=== PATIENT | female | born 1940 | race Caucasian/White ===

== ENCOUNTER → 2023-10-22 14:17 | Outpatient (BNVA) | payer MEDICARE, OTHER, SELFPAY | PROVIDERS: PCP Internal Medicine; Referring Provider Internal Medicine; Visit Provider Podiatrist | DX: I70.203 Unspecified atherosclerosis of native arteries of extremities, bilateral legs (principal); L97.529 Non-pressure chronic ulcer of other part of left foot with unspecified severity; B35.1 Tinea unguium; L60.3 Nail dystrophy; E11.621 Type 2 diabetes mellitus with foot ulcer; S91.105A Unspecified open wound of left lesser toe(s) without damage to nail, initial encounter; R49.1 Aphonia | CPT/HCPCS: 99204 ==

== ENCOUNTER → 2025-01-10 09:24 | Outpatient (BNVA) | payer MEDICARE, OTHER, SELFPAY | PROVIDERS: PCP Internal Medicine; Referring Provider Internal Medicine; Visit Provider Podiatrist | DX: I96 Gangrene, not elsewhere classified (principal); L03.116 Cellulitis of left lower limb; I70.203 Unspecified atherosclerosis of native arteries of extremities, bilateral legs; L97.522 Non-pressure chronic ulcer of other part of left foot with fat layer exposed; I70.222 Atherosclerosis of native arteries of extremities with rest pain, left leg; E11.9 Type 2 diabetes mellitus without complications; G30.9 Alzheimer's disease, unspecified; F02.80 Dementia in other diseases classified elsewhere, unspecified severity, without behavioral disturbance, psychotic disturbance, mood disturbance, and anxiety | CPT/HCPCS: 99214 ==

== ENCOUNTER → 2025-03-07 10:16 | Outpatient (BNVA) | payer MEDICARE, OTHER, SELFPAY | PROVIDERS: PCP Internal Medicine; Referring Provider Internal Medicine; Visit Provider Podiatrist | DX: I96 Gangrene, not elsewhere classified (principal); L03.116 Cellulitis of left lower limb; I70.203 Unspecified atherosclerosis of native arteries of extremities, bilateral legs; I70.222 Atherosclerosis of native arteries of extremities with rest pain, left leg; E11.8 Type 2 diabetes mellitus with unspecified complications; L97.529 Non-pressure chronic ulcer of other part of left foot with unspecified severity; G30.9 Alzheimer's disease, unspecified; F02.80 Dementia in other diseases classified elsewhere, unspecified severity, without behavioral disturbance, psychotic disturbance, mood disturbance, and anxiety; L89.620 Pressure ulcer of left heel, unstageable; L02.612 Cutaneous abscess of left foot | CPT/HCPCS: 99215 ==

== ENCOUNTER 2025-03-07 10:59 | Inpatient (IN) | payer MEDICARE, OTHER, SELFPAY ==
[2025-03-07 11:15] VITALS: BP 131/69; PULSE 80; RESP 18; TEMP 36.6; O2SAT 98
--- NOTE | 2025-03-07 11:45 | DI.RAD_ITS ---
Exam(s) XR FOOT LT COMPLETE XR HEEL LT OS CALCIS EXAM: XR FOOT LT COMPLETE and XR heel LT os calcis CLINICAL HISTORY: Left foot pain. TECHNIQUE: 2D digital imaging was performed of the left heel and foot. Five images were obtained. AP, oblique and lateral views were obtained. COMPARISON: CR XR HEEL LT OS CALCIS from 03/07/2025 FINDINGS: BONES: No acute fracture is present. No bony destructive lesion is seen. The bones are osteopenic. There is an enthesophyte at the posterior calcaneus. Is a small plantar calcaneal spur. JOINTS: No dislocation present. SOFT TISSUE: Normal. IMPRESSION: 1. There is no acute fracture or dislocation. 2. Calcaneal spurs. 3. Osteopenia. DATA REPOSITORY: RADIATION DOSE DELIVERED:
--- NOTE | 2025-03-07 11:47 | W.ED.GENAD ---
Discharge Plan Disposition Patient Disposition: Admit to [facility] Discharge Details Clinical Impression: Dry gangrene, Ischemic ulcer of left foot, Chronic ulcer of left foot Primary Care Provider: Rc Mason ED Provider: Henry Cruz [place] Meds and New Rx's Prescriptions: No Action mecobalamin (vitamin B12) 500 mcg tablet,chewable 500 mcg PO DAILY loperamide [Imodium A-D] 2 mg tablet 2 mg PO Q4H PRN Rx Instructions: administer after each loose stool until symptoms controlled; do not exceed 8 mg per 24 hrs aspirin [Adult Aspirin Regimen] 81 mg tablet,delayed release (DR/EC) 81 mg PO DAILY acetaminophen 325 mg capsule 325 mg PO ONCE PRN magnesium hydroxide [Milk of Magnesia] 400 mg/5 mL suspension 400 mg PO DAILY PRN bisacodyl [Dulcolax (bisacodyl)] 10 mg suppository 10 mg OR DAILY PRN lisinopril 5 mg tablet 5 mg PO DAILY nystatin 100,000 unit/gram powder 1 applic topical BID insulin glargine [Basaglar KwikPen U-100 Insulin] 100 unit/mL (3 mL) insulin pen 35 unit subcut QAM sennosides [Senokot] 8.6 mg tablet 8.6 mg PO DAILY melatonin 5 mg capsule 5 mg PO HS PRN cranberry fruit 450 mg tablet 450 mg PO DAILY Rx Instructions: administer with a meal ketoconazole 2 % cream 1 applic topical DAILY Qty: 120 6RF Rx Instructions: Apply to toenails once daily urea 40 % cream 1 applic topical DAILY Qty: 28.35 3RF HPI General Date/Time Provider Initiated Documentation: 03/07/25 11:47. HPI Narrative: MDM This is a demented normothermic and not tachycardic 84-year-old female with type 2 diabetes and concerning left foot findings consistent with ischemia for which podiatry advised MRI following broad-spectrum antibiotics which I ordered with cefepime and vancomycin. No pain out of proportion to suggest necrotizing soft tissue infection. I considered sepsis however patient had reassuring vital signs so I do not feel she required blood cultures nor assessment of her lactate. I do not feel that she requires an angiogram of her abdomen pelvis with runoffs as she has reportedly been evaluated by vascular in the past at [facility]. No signs of candidal infection to suggest benefit from antifungal treatment. No chest pain no nausea distress ACS so did not obtain ECG. Patient reportedly has a history of dementia. She did not fall nor hit her head. According to son she is at her baseline so no indication for CT head. 1:15 PM Markedly elevated CRP. Elevated ESR. CBC shows thrombocytosis. No anemia. No leukocytosis. 5 PM I had multiple conversations with the patient's sons. Unfortunately the patient was unable to sit still for MRI despite small anxiolytic dose of midazolam had 0.5 mg. I felt that the risks of additional sedating medications in this elderly demented patient outweighed the benefits. I asked patient's sons if she would want to be considered for possible left foot amputation at [facility]. They felt that patient would not want this invasive procedure and that it would not meaningfully contribute to her life. I advised that there is a risk of deferring this procedure as the patient certainly could develop sepsis given her already and elevated inflammatory markers and signs of redness at her heel ulcer. Sons understood this risk and preferred local hospitalization. Theiri preference was for local hospitalization. Was in touch with Dr. Fragoso who graciously agreed to accept the patient. Mariah Jamison placed admission orders. I did upload pictures in the patient's [facility] chart in the event that patient's family subsequently elects to proceed with transfer to tertiary care. HPI The patient presents for evaluation of gangrene on her left foot. She was seen by a living coach this morning. She has been experiencing gangrene on her left toes and heel for the past month. A month ago, she was referred to [facility], where it was determined that there was no blood flow in her legs. Consequently, no treatment was initiated due to concerns about her ability to heal. It is uncertain whether she has had a fever during this period. She has not experienced any nausea or vomiting. Currently residing in a detention, she has not expressed any complaints. She reports no current discomfort and does not feel hungry or thirsty. Exam General: Chronically ill-appearing in no acute distress speaking. Head: Normocephalic, atraumatic. Eye: Extraocular eye movements intact. No conjunctival injection. No scleral icterus. Ear, nose, mouth, throat: Grossly normal inspection. Normal voice, handling secretions normally. Neck: Trachea midline. Cardiovascular: Well-perfused distal extremities. Respiratory: Nonlabored respiration. Gastrointestinal: Nondistended abdomen. Musculoskeletal: There is a large left heel ulcer. Cap refill of the left toes approximately 3 seconds. Skin is cool to the left foot. There is gangrene at the tip of the left third third toe that extends laterally to the 4th and 5th toes. No crepitance. No malodor. Difficult to palpate pedal pulses. Dry gangrene to left lateral toes and heel. Skin: Normal for age and race, grossly normal temperature and turgor. No acute rash. Neurologic: Alert. Not oriented to person place or time. Cooperative Related Data Home Medications ?Medication ?Instructions ?Recorded ?Confirmed acetaminophen 325 mg capsule 325 mg PO ONCE PRN 10/19/23 03/07/25 aspirin 81 mg tablet,delayed 81 mg PO DAILY 10/19/23 03/07/25 release (Adult Aspirin Regimen) bisacodyl 10 mg rectal suppository 10 mg OR DAILY PRN 10/19/23 03/07/25 (Dulcolax (bisacodyl)) cranberry fruit 450 mg tablet 450 mg PO DAILY 10/19/23 03/07/25 insulin glargine 100 unit/mL (3 35 unit subcut QAM 10/19/23 03/07/25 mL) subcutaneous pen (Basaglar KwikPen U-100 Insulin) lisinopril 5 mg tablet 5 mg PO DAILY 10/19/23 03/07/25 loperamide 2 mg tablet (Imodium 2 mg PO Q4H PRN 10/19/23 03/07/25 A-D) magnesium hydroxide 400 mg/5 mL 400 mg PO DAILY PRN 10/19/23 03/07/25 oral suspension (Milk of Magnesia) mecobalamin (vitamin B12) 500 mcg 500 mcg PO DAILY 10/19/23 03/07/25 chewable tablet melatonin 5 mg capsule 5 mg PO HS PRN 10/19/23 03/07/25 nystatin 100,000 unit/gram topical 1 applic topical BID 10/19/23 03/07/25 powder sennosides 8.6 mg tablet (Senokot) 8.6 mg PO DAILY 10/19/23 03/07/25 ketoconazole 2 % topical cream 1 applic topical DAILY #120 grams 10/22/23 03/07/25 urea 40 % topical cream 1 applic topical DAILY #28.35 grams 10/22/23 03/07/25 Previous Rx's ?Medication ?Instructions ?Recorded ketoconazole 2 % topical cream 1 applic topical DAILY #120 grams 10/22/23 urea 40 % topical cream 1 applic topical DAILY #28.35 grams 10/22/23 Allergies Allergy/AdvReac Type Severity Reaction Status Date / Time niacin Allergy Unknown Unknown Verified 03/07/25 11:21 General Stated Complaint: Orthopedic AIREL: 3 Course Vital Signs Vital signs: Vital Signs Temperature 36.6 C 03/07/25 11:15 Pulse 80 03/07/25 11:15 Respiratory Rate 18 03/07/25 11:15 Blood Pressure 131/69 03/07/25 11:15 Pulse Oximetry 98 03/07/25 11:15 Temperature 36.6 C 03/07/25 11:15 Temperature Source Oral 03/07/25 11:15 Pulse 80 03/07/25 11:15 Respiratory Rate 18 03/07/25 11:15 Blood Pressure 131/69 03/07/25 11:15 Blood Pressure Position Sitting 03/07/25 11:15 Pulse Oximetry 98 03/07/25 11:15 Oxygen Delivery Method Room Air 03/07/25 11:15 Oxygen Flow Rate 0 03/07/25 11:15 PFSH All Active Problems (Updated 03/07/25 @ 17:05 by Henry Cruz MD) Dry gangrene (Acute) Abscess of left heel (Acute) Unstageable pressure ulcer of left heel (Acute) Critical limb ischemia of left lower extremity (Acute) Cellulitis of left foot (Acute) Gangrene of left foot (Acute) Nail dystrophy (Acute) Onychomycosis (Acute) Atherosclerosis of artery of both lower extremities (Acute) Ischemic ulcer of left foot (Acute) Chronic ulcer of left foot (Acute) Need for assistance with personal care (Acute) Difficulty walking (Acute) Hyperlipidemia (Acute) Glaucoma (Chronic) Essential hypertension (Acute) Cataract in diseases classified elsewhere (Acute) Calcific tendinitis of right shoulder (Acute) Full incontinence of feces (Acute) Cerebrovascular disease (Acute) Cellulitis of left toe (Acute) Abnormal posture (Acute) Ulcer of left foot (Acute) T2DM (type 2 diabetes mellitus) (Acute) Alzheimer disease (Chronic) Medical History Abnormal weight loss Social History Smoking/Tobacco Use Status: Never Smoking risk assessment performed?: Yes Alcohol Intake: never Substance use type: does not use
[2025-03-07] MEDS: CEFEPIME 2 GM in Normal Saline 100 ML IVPB ×2 (12:20→21:53)
[2025-03-07 12:37] LABS: Abs Immature Grans 0.03 10^3/uL (0.0-0.06); HCT 39.6 % (36.0-46.0); HGB 12.2 g/dL (11.2-15.7); Immature Grans % 0.3 %; MCH 27.1 pg (27.0-33.0); MCHC 30.8 % (32.0-36.0); MCV 88 fL (80-95); MPV 9.0 fL (8.0-11.0); Platelet Count 449 10^3/uL (130-400); RBC 4.50 10^6/uL (3.93-5.22); RDW 13.2 % (11.7-14.6); RDW-SD 42.8 fL; WBC 10.64 10^3/uL (4.4-10.8)
[2025-03-07 12:42] LABS: ESR 74 mm/hr (0-30)
[2025-03-07 12:48] LABS: C-Reactive Protein 6.22 mg/dL (<=0.50)
[2025-03-07 12:49] LABS: Anion Gap 6.3 mmol/L (3-11); BUN 20 mg/dL (9-23); CO2 28.7 mmol/L (20.0-31.0); Calcium 9.1 mg/dL (8.3-10.6); Chloride 105 mmol/L (98-107); Glucose 247 mg/dL (74-106); Potassium 4.8 mmol/L (3.5-5.1); Sodium 140 mmol/L (136-145)
--- NOTE | 2025-03-07 15:48 | NUR.NOTE ---
Nursing Note: unstagable wound to left heel 5.5x3 cm 100% black eschar with left 5th toe black with yellow slough between 4th and 5th digit
[2025-03-07] MEDS: VANCOMYCIN/WATER (PEG) 1.5 GM/300 ML BAG IVPB (16:55)
[2025-03-07] MEDS: Midazolam 2 MG/2 ML VIAL 0.5 MG IVP (18:11)
[2025-03-07 18:16] VITALS: BP 187/85; PULSE 97; O2SAT 98
--- NOTE | 2025-03-07 18:16 | W.PC.ACHO ---
Registration Status: REG ER Primary Language: Preferred Language: ED Information & Data Chief Complaint Orthopedic 03/07/25 16:27 Chief Complaint Orthopedic 03/07/25 11:51 Triage Note patient sent from podiatry 03/07/25 11:15 with gangrene to the left toe and the left ankle Medical / Surgical History (Last Reviewed 03/07/25 @ 10:28 by Veronica Navarro DPM) Abnormal weight loss Most Recent Vital Signs Temperature 36.6 C 03/07/25 11:15 Temperature Source Oral 03/07/25 11:15 Pulse 80 03/07/25 11:15 Respiratory Rate 18 03/07/25 11:15 Blood Pressure 131/69 03/07/25 11:15 Blood Pressure Position Sitting 03/07/25 11:15 Pulse Oximetry 98 03/07/25 11:15 Oxygen Delivery Method Room Air 03/07/25 11:15 Oxygen Flow Rate 0 03/07/25 11:15 Allergies niacin Allergy (Unknown, Verified 03/07/25 11:21) Unknown Precautions Isolation Standard precaution 03/07/25 16:27 IV IV Catheter Type [Right Saline Lock Antecubital] IV Catheter Gauge [Right 20 Antecubital] Diet Orders Category Date Time Status Diabetes Consistent CHO/Heart Healthy [DIET] Nutrition 03/07/25 Dinner Active Diagnostics 03/07/25 Range/Units 12:20 WBC 10.64 (4.4-10.8) 10^3/uL RBC 4.50 (3.93-5.22) 10^6/uL Hgb 12.2 (11.2-15.7) g/dL Hct 39.6 (36.0-46.0) % MCV 88 (80-95) fL MCH 27.1 (27.0-33.0) pg MCHC 30.8 L (32.0-36.0) % RDW 13.2 (11.7-14.6) % Plt Count 449 H (130-400) 10^3/uL MPV 9.0 (8.0-11.0) fL Immature Gran % 0.3 % Neutrophils % 68.2 % Lymphocytes % 16.1 % Monocytes % 11.4 % Eosinophils % 3.4 % Basophils % 0.6 % Nucleated RBC % 0.0 (0.0-0.3) % Absolute Neutrophils 7.27 H (1.2-6.7) 10^3/uL Absolute Lymphocytes 1.71 (1.2-3.4) 10^3/uL Absolute Monocytes 1.21 H (0.1-0.8) 10^3/uL Absolute Eosinophils 0.36 (0.0-0.7) 10^3/uL Absolute Basophils 0.06 (0.0-0.2) 10^3/uL ESR 74 H (0-30) mm/hr Sodium 140 (136-145) mmol/L Potassium 4.8 (3.5-5.1) mmol/L Chloride 105 (98-107) mmol/L Carbon Dioxide 28.7 (20.0-31.0) mmol/L Anion Gap 6.3 (3-11) mmol/L BUN 20 (9-23) mg/dL Creatinine 0.97 (0.55-1.02) mg/dL Est GFR (CKD-EPI 2020) 54.51 (mL/min/1.73m2) Glucose 247 H (74-106) mg/dL Calcium 9.1 (8.3-10.6) mg/dL C-Reactive Protein 6.22 H (<=0.50) mg/dL Intake and Output - 24 Hour Total 03/07/25 10:59 thru 03/07/25 12:21 Intake Total 10 Balance 10 Weight 68.039 kg Intake: IV 10 Falls Risk Assessment History of Falls Previous History 03/07/25 16:27 Fall Total Score 15 03/07/25 16:27 Level of Risk Standard/Low Risk 03/07/25 16:27 Problems (Last Reviewed 03/07/25 @ 10:28 by Veronica Navarro DPM) Dry gangrene (Acute) Ischemic ulcer of left foot (Acute) Chronic ulcer of left foot (Acute) Notes 03/07/25 15:48 Nursing Notes by Angela Vann Nursing Note: unstagable wound to left heel 5.5x3 cm 100% black eschar with left 5th toe black with yellow slough between 4th and 5th digit Initialized on 03/07/25 15:48 - END OF NOTE Attestation Statement: By documenting the first initial, last name, and credentials of the reporting nurse below, both parties acknowledge that all relevant information regarding the patient handoff has been communicated, and that all questions have been addressed to ensure continuity and safety of care. Additional Patient Information/Comments: Paged at [phone] and report called at [phone]. Report Received From: Angela Henriquez RN
[2025-03-07 18:55] VITALS: BP 113/68; PULSE 106; RESP 18; TEMP 36.8; O2SAT 94
--- NOTE | 2025-03-07 19:33 | W.PM.HP.N ---
Date of service: 03/07/25 Time of Service: 18:00 Assessment and Plan Assessment and plan (1) Dry gangrene: Status: Acute Assessment and plan: Podiatry today found dry gangrene (3rd?5th toes), unstageable heel ulcer, erythema, and purulence concerning for superimposed infection. Wound cultures obtained. Vascular evaluation previously concluded not a candidate for revascularization; proximal amputation would be next step if deterioration occurs. MRI attempted but not tolerated. Family declines transfer to tertiary center or surgical intervention at this time. Dressings per podiatry recommendations (2) Critical limb ischemia of left lower extremity: Status: Acute Assessment and plan: Toe pressure 39 mmHg from vascular note. No revascularization options; patient is non-ambulatory. Very high risk for progressive gangrene. Conservative management; pain control; goals of care ongoing Palliative care consult. (3) T2DM (type 2 diabetes mellitus): Status: Acute Assessment and plan: Continue Basaglar 35 units qAM. Sliding scale insulin. FS Glucose ACHS Daily BMP (4) Essential hypertension: Status: Acute Assessment and plan: Continue lisinopril 5 mg daily. (5) Alzheimer disease: Status: Chronic Assessment and plan: Baseline dementia. Avoid sedating medications unless necessary. Reorientation, sleep hygiene, delirium precautions. (6) DVT prophylaxis: Status: Acute Assessment and plan: Enoxaparin 40 mg daily (7) Discharge planning issues: Status: Acute Assessment and plan: Return to [facility] to see Palliative consult - goals of care Expect discharge in 3 days History of Present Illness Narrative: This is an 84-year-old female patient with advanced Alzheimer dementia, type 2 diabetes, severe PAD/critical limb ischemia, and hypertension, presenting from her nursing facility after podiatry evaluation earlier today showed worsening left foot gangrene, heel ulcer, and concern for deep infection. Podiatry Visit Today (Summary) Earlier today, the patient was seen by podiatry for chronic gangrene and a new worsening heel wound. Findings included: Dry gangrene of the left 3rd?5th toes with surrounding erythema extending toward the midshaft of the 4th?5th metatarsals. Unstageable left heel ulcer with erythema and purulent drainage; concerns for cellulitis and possible underlying abscess or osteomyelitis. Pedal pulses 0/4 bilaterally; delayed cap refill; cold skin; consistent with critical limb ischemia. Cultures (aerobic + anaerobic) taken from left heel. Recommended Betadine paint, Allevyn dressings, padding of bony prominences, and Prevalon boots. Podiatry reviewed the vascular surgery note from 01/10/25, which documented toe pressure 39 mmHg, and stated the patient is not a candidate for revascularization; if tissue loss progresses, proximal amputation would be the next step. They recommended: CBC, ESR, CRP Left foot and left heel X-rays MRI to assess for osteomyelitis or abscess IV antibiotics ER evaluation and hospital admission Transfer to [facility] vascular service if MRI shows OM requiring proximal amputation. ED Course In the ED, she was afebrile with stable vital signs. Broad-spectrum antibiotics (cefepime + vancomycin) were started. MRI was attempted but failed due to inability to lie still; only minimal midazolam (0.5 mg) was used, and additional sedation was avoided due to high risk. Sons were counseled on risks of progression to sepsis and possible future need for amputation. They declined transfer or invasive interventions and requested local hospitalization. Symptoms Patient is a poor historian due to dementia. She denies pain, nausea, vomiting, fevers, or chills. Nursing facility reports no acute complaints. She has chronic poor perfusion and longstanding foot changes. Review of Systems Narrative: General: No known fever or chills. Skin: Gangrene and heel ulcer. Respiratory: No dyspnea. Cardiac: No chest pain. GI: No nausea/vomiting. : Full fecal incontinence. Neuro: At baseline dementia; no new deficits. [facility] All Active Problems (Updated 03/07/25 @ 19:43 by Mariah Jamison NP) Discharge planning issues (Acute) DVT prophylaxis (Acute) Dry gangrene (Acute) Abscess of left heel (Acute) Unstageable pressure ulcer of left heel (Acute) Critical limb ischemia of left lower extremity (Acute) Cellulitis of left foot (Acute) Gangrene of left foot (Acute) Nail dystrophy (Acute) Onychomycosis (Acute) Atherosclerosis of artery of both lower extremities (Acute) Ischemic ulcer of left foot (Acute) Chronic ulcer of left foot (Acute) Need for assistance with personal care (Acute) Difficulty walking (Acute) Hyperlipidemia (Acute) Glaucoma (Chronic) Essential hypertension (Acute) Cataract in diseases classified elsewhere (Acute) Calcific tendinitis of right shoulder (Acute) Full incontinence of feces (Acute) Cerebrovascular disease (Acute) Cellulitis of left toe (Acute) Abnormal posture (Acute) Ulcer of left foot (Acute) T2DM (type 2 diabetes mellitus) (Acute) Alzheimer disease (Chronic) Medical History Abnormal weight loss Social History Smoking risk assessment performed?: No Alcohol Intake: never Substance use type: does not use Meds Allergies and Home Medications Allergies Allergy/AdvReac Type Severity Reaction Status Date / Time niacin Allergy Unknown Unknown Verified 03/07/25 11:21 Home Medications ?Medication ?Instructions ?Recorded ?Confirmed ?Type acetaminophen 325 mg capsule 325 mg PO ONCE PRN 10/19/23 03/07/25 History aspirin 81 mg tablet,delayed 81 mg PO DAILY 10/19/23 03/07/25 History release (Adult Aspirin Regimen) bisacodyl 10 mg rectal suppository 10 mg [place] DAILY PRN 10/19/23 03/07/25 History (Dulcolax (bisacodyl)) cranberry fruit 450 mg tablet 450 mg PO DAILY 10/19/23 03/07/25 History insulin glargine 100 unit/mL (3 35 unit subcut QAM 10/19/23 03/07/25 History mL) subcutaneous pen (Basaglar KwikPen U-100 Insulin) lisinopril 5 mg tablet 5 mg PO DAILY 10/19/23 03/07/25 History loperamide 2 mg tablet (Imodium 2 mg PO Q4H PRN 10/19/23 03/07/25 History A-D) magnesium hydroxide 400 mg/5 mL 400 mg PO DAILY PRN 10/19/23 03/07/25 History oral suspension (Milk of Magnesia) mecobalamin (vitamin B12) 500 mcg 500 mcg PO DAILY 10/19/23 03/07/25 History chewable tablet melatonin 5 mg capsule 5 mg PO HS PRN 10/19/23 03/07/25 History nystatin 100,000 unit/gram topical 1 applic topical BID 10/19/23 03/07/25 History powder sennosides 8.6 mg tablet (Senokot) 8.6 mg PO DAILY 10/19/23 03/07/25 History ketoconazole 2 % topical cream 1 applic topical DAILY #120 grams 10/22/23 03/07/25 Rx urea 40 % topical cream 1 applic topical DAILY #28.35 grams 10/22/23 03/07/25 Rx Exam Narrative Exam Narrative: HEENT: NCAT; EOMI; anicteric. Neck: Trachea midline. CV: Poor distal perfusion; extremities cool. Resp: Non-labored on room air. GI: Abdomen nondistended. Extremities: Left foot: Large unstageable heel ulcer with erythema. Dry gangrene of 3rd toe extending to 4th?5th toes. Purulence present; no crepitus. Cool to touch; cap refill ~3 seconds. Pedal pulses difficult/unpalpable. Right foot: No acute findings. Skin: No acute rash. Neuro: Alert but disoriented ?3; cooperative; baseline. Vitals: Stable (BP 131/69, HR 80, RR 18, Temp 36.6?C, SpO2 98% RA). Results Labs 03/07/25 12:20 03/07/25 12:20 Labs: Laboratory Results - last 24 hr 03/07/25 12:20 WBC 10.64 RBC 4.50 Hgb 12.2 Hct 39.6 MCV 88 MCH 27.1 MCHC 30.8 L RDW 13.2 Plt Count 449 H MPV 9.0 Immature Gran % 0.3 Neutrophils % 68.2 Lymphocytes % 16.1 Monocytes % 11.4 Eosinophils % 3.4 Basophils % 0.6 Nucleated RBC % 0.0 Absolute Neutrophils 7.27 H Absolute Lymphocytes 1.71 Absolute Monocytes 1.21 H Absolute Eosinophils 0.36 Absolute Basophils 0.06 ESR 74 H Sodium 140 Potassium 4.8 Chloride 105 Carbon Dioxide 28.7 Anion Gap 6.3 BUN 20 Creatinine 0.97 Est GFR (CKD-EPI 2020) 54.51 Glucose 247 H Calcium 9.1 C-Reactive Protein 6.22 H Last Vital Signs Temp 36.6 C 03/07/25 11:15 Pulse 97 H 03/07/25 18:16 Resp 18 03/07/25 11:15 BP 187/85 H 03/07/25 18:16 Pulse Ox 98 03/07/25 18:16 VTE Prohylaxis Risk Level: Moderate/High Risk Contraindications: None Prophylaxis: Pharmacologic Time Spent Time spent with Patient: 40-54 minutes Time was spent: preparing to see the patient(eg.review tests), obtaining and/or reviewing separately otained hiistory, ordering medications,tests, procedures, referring, communicating with other health post anesthesia care unit nurse, indepentently interpreting results, counseling the patient and care coordination
[2025-03-07] MEDS: Nystatin POWDER 15 GM JAR TP (21:52)
[2025-03-07] MEDS: Normal Saline 1,000 ML 75 ML IV (22:14)
[2025-03-08 00:14] VITALS: BP 157/57; PULSE 74; RESP 18; TEMP 36.8; O2SAT 99
[2025-03-08 05:57] VITALS: BP 134/82; PULSE 87; RESP 18; TEMP 36.4; O2SAT 97
[2025-03-08 07:29] VITALS: BP 143/80; PULSE 80; RESP 18; TEMP 36.3; O2SAT 98
[2025-03-08 07:32] LABS: Abs Immature Grans 0.05 10^3/uL (0.0-0.06); HCT 38.5 % (36.0-46.0); HGB 11.9 g/dL (11.2-15.7); Immature Grans % 0.4 %; MCH 26.9 pg (27.0-33.0); MCHC 30.9 % (32.0-36.0); MCV 87 fL (80-95); MPV 9.0 fL (8.0-11.0); Platelet Count 467 10^3/uL (130-400); RBC 4.43 10^6/uL (3.93-5.22); RDW 13.1 % (11.7-14.6); RDW-SD 41.1 fL; WBC 11.52 10^3/uL (4.4-10.8)
[2025-03-08 07:56] LABS: C-Reactive Protein 5.79 mg/dL (<=0.50); Magnesium 2.1 mg/dL (1.6-2.6)
[2025-03-08 07:57] LABS: Anion Gap 8 mmol/L (3-11); BUN 17 mg/dL (9-23); CO2 25.0 mmol/L (20.0-31.0); Calcium 8.6 mg/dL (8.3-10.6); Chloride 108 mmol/L (98-107); Glucose 90 mg/dL (74-106); Potassium 3.9 mmol/L (3.5-5.1); Sodium 141 mmol/L (136-145)
--- NOTE | 2025-03-08 08:40 | POCOE_ITS ---
Date of service: 03/08/25 Time of Service: 08:45 Assessment and Plan Assessment and plan (1) Gangrene of left foot: Status: Acute (2) Atherosclerosis of artery of both lower extremities: Status: Acute (3) Ischemic ulcer of left foot: Status: Acute (4) Chronic ulcer of left foot: Status: Acute (5) Unstageable pressure ulcer of left heel: Status: Acute (6) Abscess of left heel: Status: Acute (7) Dry gangrene: Status: Acute (8) T2DM (type 2 diabetes mellitus): Status: Acute (9) Alzheimer disease: Status: Chronic Assessment and plan: Patient with dry gangrene to the left fifth toe. There is an unstageable ulcer with concern for underlying abscess to the left heel. There is cellulitis to the left heel. Her pulses are non palpable. Vascular studies suggestive of severe PAD with CLI. She is not a revascularization candidate due to comorbidities and difficulty tolerating anesthesia as per Vascular service at [facility]. I called infectious disease and discussed this. They recommend 5 to 7 days of IV antibiotics. They do not recommend long-term antibiotics due to risk for developing resistance. She is not a candidate for wound debridement due to vascular status. With gangrene, cellulitis, ulcer and purulence to the left foot, there is very high risk for limb loss and sepsis at this time. I discussed this with the medicine team. They have consulted palliative care as well. For now, will continue with woundcare and IV antibiotics. Wound culture results are pending. I recommended and applied betadine to the wound and gangrenous toe with foam border dressings. Nursing to change dressings daily. I recommend prevalon boots. Patients is non ambulatory. Very high risk for developing pressure ulcers. History of Present Illness History of Present Illness Chief Complaint: Heel ulcer with cellulitis, left Narrative: Patient was seen bedside today. Resting comfortably. Consults Consult date: 03/07/25 Requesting physician: [facility] Active Problems Discharge planning issues (Acute) DVT prophylaxis (Acute) Dry gangrene (Acute) Abscess of left heel (Acute) Unstageable pressure ulcer of left heel (Acute) Critical limb ischemia of left lower extremity (Acute) Cellulitis of left foot (Acute) Gangrene of left foot (Acute) Nail dystrophy (Acute) Onychomycosis (Acute) Atherosclerosis of artery of both lower extremities (Acute) Ischemic ulcer of left foot (Acute) Chronic ulcer of left foot (Acute) Need for assistance with personal care (Acute) Difficulty walking (Acute) Hyperlipidemia (Acute) Glaucoma (Chronic) Essential hypertension (Acute) Cataract in diseases classified elsewhere (Acute) Calcific tendinitis of right shoulder (Acute) Full incontinence of feces (Acute) Cerebrovascular disease (Acute) Cellulitis of left toe (Acute) Abnormal posture (Acute) Ulcer of left foot (Acute) T2DM (type 2 diabetes mellitus) (Acute) Alzheimer disease (Chronic) Medical History Abnormal weight loss Social History Smoking risk assessment performed?: No Alcohol Intake: never Substance use type: does not use Exam Extrem Other: Vascular: Pedal pulses are 0/4 b/l LE. There is mild edema to b/l LE. Capillary fill time is delayed to distal digits bilaterally. Skin temperature is cold to cold bilateral lower extremity. No varicose veins or spider veins noted bilaterally. Hair growth is absent bilaterally. Gangrene to the tip of the left third toe with surrounding erythema extending to towards the mid metatarsal of the 4th and 5th metatarsals. No crepitus appreciated at this time however, exam is very limited as the patient withdraws the left lower extremity. No malodor. There does appear to be some purulence from the left lower extremity wound. MSK: Muscle testing deferred today due to patient status Derm: gangrene noted to the left fifth toe with surrounding erythema, edema, crepitus is difficult to be appreciated due to patient withdrawing her left leg. Erythema extending medially towards the midshaft of the 4th and 5th metatarsals at this time. Unstageable ulcer noted to the entirety of the left heel posteriorly as well as laterally, there is skin desquamation noted yuly ulcer. There is erythema extending from this wound medially to dorsally. No proximal streaking however no lymphangitis however. No appreciable crepitus, there is some purulence noted medially. Results Last Vital Signs Temp 97.3 F L 03/08/25 07:29 Pulse 80 03/08/25 07:29 Resp 18 03/08/25 07:29 BP 143/80 H 03/08/25 07:29 Pulse Ox 98 03/08/25 07:29 Labs 03/08/25 06:50 03/08/25 06:50 Labs: Laboratory Results - last 24 hr 03/07/25 03/08/25 12:20 06:50 WBC 10.64 11.52 H RBC 4.50 4.43 Hgb 12.2 11.9 Hct 39.6 38.5 MCV 88 87 MCH 27.1 26.9 L MCHC 30.8 L 30.9 L RDW 13.2 13.1 Plt Count 449 H 467 H MPV 9.0 9.0 Immature Gran % 0.3 0.4 Neutrophils % 68.2 73.0 Lymphocytes % 16.1 12.4 Monocytes % 11.4 10.2 Eosinophils % 3.4 3.5 Basophils % 0.6 0.5 Nucleated RBC % 0.0 0.0 Absolute Neutrophils 7.27 H 8.41 H Absolute Lymphocytes 1.71 1.43 Absolute Monocytes 1.21 H 1.18 H Absolute Eosinophils 0.36 0.40 Absolute Basophils 0.06 0.06 ESR 74 H Sodium 140 141 Potassium 4.8 3.9 Chloride 105 108 H Carbon Dioxide 28.7 25.0 Anion Gap 6.3 8 BUN 20 17 Creatinine 0.97 0.92 Est GFR (CKD-EPI 2020) 54.51 57.95 Glucose 247 H 90 Calcium 9.1 8.6 Magnesium 2.1 C-Reactive Protein 6.22 H 5.79 H
[2025-03-08 09:26] LABS: Vancomycin, Random 11.6 ug/mL
--- NOTE | 2025-03-08 10:15 | INITIAL_ITS ---
Care Management Initial Assmt Initial Assessment Reason for Hospitalization: gangrene of left foot Functional Status/Living Situation Patient Presentation: Elisha was seen in the outpatient podiatry office yesterday. She was noted to have a new wound on her left heel, and this was believed due to progression of gangrene. Cultures were taken and sent, and Elisha was sent to the ED for further evaluation. Per podiatry, Elisha is not a revascularization candidate due to comorbidities and difficulty tolerating anesthesia. She is not a candidate for wound debridement due to vascular status. With gangrene, cellulitis, ulcer and purulence to the left foot, there is very high risk for limb loss and sepsis at this time. IV abx course recommended, but it is believed this would actually do very little, and she is not a candidate for [facility] antibiotics. Elisha was unable to tolerate MRI, so that imaging not done. Family is declining transfer to [facility] or surgical intervention. Elisha has Alzheimers and is bed bound. She lives at the [facility] in [place]. Palliative had a lengthy conversation with Elisha's son, Tobi, today. Elisha was made RUBBER GRINDER and will transfer back to the [facility] tomorrow on hospice. Elisha was sleeping very soundly each time that went to check on her today. She appeared comfortable, looked peaceful. Tobi had reported that Elisha loves the music of [place], and was able to secure a hospital ipad and put on the [employer] station for her. Town of Residence: [place] at [facility] Resides with: Other (resides at [facility]) Significant Other/Family: Local (Tobi,son) Caregiver/Guardian: Sly Puckettdash Britton is legal guardian Natural Supports: Tiny Guthrie Instrumental Activities of Daily Living (ADLs): Requires support Medications Medication Management: No Issues/Barriers identified Physical Functioning/Mobility Assistive Device: wheel chair. Elisha is non-ambulatory Advance Directives Advance Directives: Do you have an Advance Directive: AD On File at [facility]: N 10/26/23, 12:50 Date Asked 03/07/25 03/07/25, 11:42 AD Date Reviewed COLST On File at [facility] COLST Date Scanned Code Status Resuscitation Status DNR/DNI Insurance Coverage/Financial Issues Insurance: Medicare Part A & B 4 Life MCR Supplement Care Team Visit Care Team Role Provider Type Mariah Jamison NP MD [facility] STAFF PHYSICIAN Rc Mason Primary Care Provider NON-[facility] STAFF PHYSICIAN Karena Yusuf, ADINA, CDCES Other Providers MARBLE CLEANER Veronica Navarro, DPM [facility] Kevin Andrade, ERICM Other [facility]iders [facility] Jose Cormier, ADINA Other Providers MARBLE CLEANER Henry Cruz MD Emergency Provider [facility] STAFF PHYSICIAN Henry Fragoso Admit Provider [facility] STAFF PHYSICIAN Attending Provider Discharge Potential Discharge Needs: PCP F/U Appt and Other (hospice care) Anticipated Barriers to Discharge: None Identified Patient/Family Education Needs: Review discharge instructions, discuss Ask Me Three Transportation: EMS Plan: Elisha will transfer home to [facility] tomorrow and be admitted to hospice. She will f/u with the hospice provider and continue per her plan of care. Elisha will transport via EMS as coordinated by CM. Social Determinants of Health Screening Will the Patient Participate in the Screening?: Unable to obtain Comments: unable to answer question PFSH All Active Problems (Updated 03/08/25 @ 12:26 by Cherelle Rajput NP) ACP (advance care planning) (Acute) Comfort measures only status (Acute) Palliative care encounter (Acute) Discharge planning issues (Acute) DVT prophylaxis (Acute) Dry gangrene (Acute) Abscess of left heel (Acute) Unstageable pressure ulcer of left heel (Acute) Critical limb ischemia of left lower extremity (Acute) Cellulitis of left foot (Acute) Gangrene of left foot (Acute) Nail dystrophy (Acute) Onychomycosis (Acute) Atherosclerosis of artery of both lower extremities (Acute) Ischemic ulcer of left foot (Acute) Chronic ulcer of left foot (Acute) Need for assistance with personal care (Acute) Difficulty walking (Acute) Hyperlipidemia (Acute) Glaucoma (Chronic) Essential hypertension (Acute) Cataract in diseases classified elsewhere (Acute) Calcific tendinitis of right shoulder (Acute) Full incontinence of feces (Acute) Cerebrovascular disease (Acute) Cellulitis of left toe (Acute) Abnormal posture (Acute) Ulcer of left foot (Acute) T2DM (type 2 diabetes mellitus) (Acute) Alzheimer disease (Chronic) Medical History Abnormal weight loss Social History Smoking/Tobacco Use Status: Never Smoking risk assessment performed?: Yes Alcohol Intake: never Substance use type: does not use
[2025-03-08 11:14] VITALS: BP 124/97; PULSE 91; RESP 18; TEMP 35.8; O2SAT 96
[2025-03-08] MEDS: Enoxaparin 40 MG/0.4 ML SYR SC (11:20)
[2025-03-08] MEDS: Nystatin POWDER 15 GM JAR TP ×2 (11:24→20:42)
--- NOTE | 2025-03-08 12:08 | W.PALLCONSUL ---
Date of service: 03/08/25 Time of Service: 11:00 History of Present Illness Narrative: Ms. Tello is an 84 y/o F currently hospitalized 2/2 LLE gangrenous foot; PMHx sig for AD and DM - present via telephone son/guardian Tobi Hospital Course: presented to ED after podiatry outpatient visit recommend present to ED w/concerns for LLE gangrenous; present over toes and heels x1mo; podiatry evaluation recommend MRI, unfortunately patient was not able to tolerate MRI; broad spectrum abx started; family preference in ED for no amputation or transfer per the patient's preference. ID consult indicate that we could do IV antibiotics however not candidate for [facility] abx, given for 5-7 days would not do much per hospitalist - per staff: pain w/repositioning, recovers quickly after; not making meaningful conversation, not awake enough to eat initially this morning but did wake later and eat appropriately around 50% of breakfast w/full feed assist; bed bound, incontinent of urine and bowels per Tobi - he has been guardian for 8+ years, since dementia diagnosis, he was caregiver for her for 5 years prior to placement at [facility], she has been there for a bit now - he spoke to his brother Dejuan, and their biggest concern is managing her pain - he feels her focus on comfort, not life prolonging measures, if she could see herself now she would not want to have any invasive measures, including an amputation, even if it meant she would sooner - if she could choose where she was for EOL, she would likely choose [facility] at this time, Tobi does not feel he has the ability to be her bone drier operator caregiver anymore - music makes her happy, [place]acio era; she loves food, any type of food - would prefer to have hospice services available to her at [facility] for increased/added supports, specifically for hygiene - unsure if she has ever had stronger medications than apap/ibuprofen - would want to be notified if transition to actively dying were to occur during this hospitalization, okay w/goal of discharge back to [facility] tomorrow for comfort focused care, end of life care, no transfers Assessment and Plan Assessment and plan (1) Dry gangrene: Status: Acute Assessment and plan: non-operable, likely not curable, 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 for no amputation 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 (2) Unstageable pressure ulcer of left heel: Status: Acute (3) Critical limb ischemia of left lower extremity: Status: Acute (4) Need for assistance with personal care: Status: Acute Assessment and plan: lives in residential level of care, full personal care available (5) Alzheimer disease: Status: Chronic Assessment and plan: FAST Scale 7+ at baseline hospice eligible (6) Discharge planning issues: Status: Acute Assessment and plan: spoke to [facility] staff, comfortable resuming care for Elisha on comfort directed care through EOL they do not bring in outside hospice at their facility, do EOL internally to review w/DON and BULLET CHARGING MACHINE OPERATOR prior to return to [facility] plan to schedule discharge home tomorrow; to be coordinated via and [facility] (7) Palliative care encounter: Status: Acute Assessment and plan: anticipate Elisha will be discharged home prior to PC available for f/u - contact PC office for any acute needs prior to discharge [phone] (8) Comfort measures only status: Status: Acute Assessment and plan: per COLST, preference for AMUSEMENT PARK WORKER style care - d/c'd antibiotics and other LST treatments after phone call w/guardian - trial morphine 2.5-20 mg PRN q1h for pain, see order, to administer prior to repositioning no other comfort meds required at this time, will hold orders at this time; contact hospitalist if needed (9) ACP (advance care planning): Status: Acute Assessment and plan: reviewed current hospitalization, hospice eligibility, patient preferences and existing COLST documentation w/guardian/son Tobi reviewed preferences for comfort directed care w/pain management as priority, stop all other LST interventions reviewed recommendation for hospice style care d/t dual diagnosis eligibility: untreatable gangrene and end stage Alzheimer reviwed w/[facility] staff recommendations for hospice style care, they are willing to take Elisha back for EOL care spent 25m w/ACP Review of Systems Narrative: as per HPI pt unable to participate 2/2 mental condition PFSH All Active Problems (Updated 03/08/25 @ 12:26 by Cherelle Rajput NP) ACP (advance care planning) (Acute) Comfort measures only status (Acute) Palliative care encounter (Acute) Discharge planning issues (Acute) DVT prophylaxis (Acute) Dry gangrene (Acute) Abscess of left heel (Acute) Unstageable pressure ulcer of left heel (Acute) Critical limb ischemia of left lower extremity (Acute) Cellulitis of left foot (Acute) Gangrene of left foot (Acute) Nail dystrophy (Acute) Onychomycosis (Acute) Atherosclerosis of artery of both lower extremities (Acute) Ischemic ulcer of left foot (Acute) Chronic ulcer of left foot (Acute) Need for assistance with personal care (Acute) Difficulty walking (Acute) Hyperlipidemia (Acute) Glaucoma (Chronic) Essential hypertension (Acute) Cataract in diseases classified elsewhere (Acute) Calcific tendinitis of right shoulder (Acute) Full incontinence of feces (Acute) Cerebrovascular disease (Acute) Cellulitis of left toe (Acute) Abnormal posture (Acute) Ulcer of left foot (Acute) T2DM (type 2 diabetes mellitus) (Acute) Alzheimer disease (Chronic) Medical History Abnormal weight loss Social History Smoking/Tobacco Use Status: Never Smoking risk assessment performed?: Yes Alcohol Intake: never Substance use type: does not use Exam Narrative Exam Narrative: General: older adult female, lying in hospital bed, HOB elevated, delayed wakening w/elevated voice volume and anterior chest rub, does open eyes and makes eye contact; no grimace or groan, no furrowed brow HEENT: normocephalic, atraumatic, MMM Resp: even and unlaboared, no cough or audible wheeze Psych: speech limited to 1 word, non-sensicle, unable to answer closed ended questions Results Last Vital Signs Temp 96.4 F L 03/08/25 11:14 Pulse 91 H 03/08/25 11:14 Resp 18 03/08/25 11:14 BP 124/97 H 03/08/25 11:14 Pulse Ox 96 03/08/25 11:14 Labs 03/08/25 06:50 03/08/25 06:50 Labs: Laboratory Results - last 24 hr 03/07/25 03/08/25 03/08/25 12:20 06:50 08:58 WBC 10.64 11.52 H RBC 4.50 4.43 Hgb 12.2 11.9 Hct 39.6 38.5 MCV 88 87 MCH 27.1 26.9 L MCHC 30.8 L 30.9 L RDW 13.2 13.1 Plt Count 449 H 467 H MPV 9.0 9.0 Immature Gran % 0.3 0.4 Neutrophils % 68.2 73.0 Lymphocytes % 16.1 12.4 Monocytes % 11.4 10.2 Eosinophils % 3.4 3.5 Basophils % 0.6 0.5 Nucleated RBC % 0.0 0.0 Absolute Neutrophils 7.27 H 8.41 H Absolute Lymphocytes 1.71 1.43 Absolute Monocytes 1.21 H 1.18 H Absolute Eosinophils 0.36 0.40 Absolute Basophils 0.06 0.06 ESR 74 H Sodium 140 141 Potassium 4.8 3.9 Chloride 105 108 H Carbon Dioxide 28.7 25.0 Anion Gap 6.3 8 BUN 20 17 Creatinine 0.97 0.92 Est GFR (CKD-EPI 2020) 54.51 57.95 Glucose 247 H 90 Calcium 9.1 8.6 Magnesium 2.1 C-Reactive Protein 6.22 H 5.79 H Random Vancomycin 11.6 Time Spent Time Spent with Patient Time Spent(min): 60
[2025-03-08] MEDS: MORPHine Oral Solution 10 MG/5 ML CUP PO (15:14)
[2025-03-08] MEDS: Insulin Aspart 300 UNITS/3 ML PEN SC (15:17)
--- NOTE | 2025-03-08 15:38 | PGE_ITS ---
Date of Service Date of service: 03/08/25 Time of Service: 15:38 Assessment and Plan Assessment and plan (1) Dry gangrene: Status: Acute Assessment and plan: Podiatry today found dry gangrene (3rd?5th toes), unstageable heel ulcer, erythema, and purulence concerning for superimposed infection. Wound cultures obtained. Vascular evaluation previously concluded not a candidate for revascularization; proximal amputation would be next step if deterioration occurs. MRI attempted but not tolerated. Family declines transfer to tertiary center or surgical intervention at this time. Dressings per podiatry recommendations Seen by Podiatry and Palliative care: Podiatry evaluation showed dry gangrene of the left fifth toe, unstageable left heel ulcer with possible abscess, and cellulitis. Pulses were non-palpable; vascular studies confirmed severe PAD with critical limb ischemia. Patient is not a candidate for revascularization, debridement, or amputation per vascular surgery due to comorbidities and inability to tolerate anesthesia. Infectious Disease advised only 5?7 days of IV antibiotics if treating infection, with no long-term antibiotics. High risk for limb loss and sepsis. Wound care initiated with Betadine and foam dressings; nursing to perform daily changes. Prevalon boots recommended. Dr. Navarro updated that patient is now off antibiotics with planned discharge to [facility] on 03/09 for comfort-focused care. Palliative care spoke via telephone with son/guardian Tobi, the only HIPAA contact. Family had questioned whether sedation for MRI might help evaluate blood flow, but it was reviewed that MRI would not policy change clerks supervisor given non- operable LLE gangrene, advanced Alzheimer?s dementia, and no surgical or curative options. Emphasis placed on comfort-focused care; antibiotics and life- prolonging treatments discontinued per existing COLST. Tobi expressed that the patient would not want invasive measures and confirmed goals of comfort measures only, prioritizing pain control. He voiced preference for return to [facility] for end-of-life care with internal hospice-style support. Palliative care reviewed hospice eligibility (dual diagnoses: end-stage Alzheimer disease and non-reconstructable gangrene), addressed family concerns, and reassured Tobi he is advocating appropriately. 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 (2) Critical limb ischemia of left lower extremity: Status: Acute Assessment and plan: * Toe pressure 39 mmHg from vascular note. * No revascularization options; patient is non-ambulatory. * Very high risk for progressive gangrene. Conservative management; pain control; goals of care ongoing Palliative care consult. (3) T2DM (type 2 diabetes mellitus): Status: Acute Assessment and plan: * Continue Basaglar 30 units qAM. * Sliding scale insulin. * FS Glucose ACHS * Daily BMP (4) Essential hypertension: Status: Acute Assessment and plan: * Continue lisinopril 5 mg daily. (5) Alzheimer disease: Status: Chronic Assessment and plan: * Baseline dementia. * Avoid sedating medications unless necessary. * Reorientation, sleep hygiene, delirium precautions. 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 Neck: Trachea midline. CV: Poor distal perfusion; extremities cool. Resp: Non-labored on room air. GI: Abdomen nondistended. Extremities: * Left foot: * Large unstageable heel ulcer with erythema. * Dry gangrene of 3rd toe extending to 4th?5th toes. * Purulence present; no crepitus. * Cool to touch; cap refill ~3 seconds. * Pedal pulses difficult/unpalpable. * Right foot: No acute findings. Skin: No acute rash. Neuro: Alert but disoriented ?3; cooperative; baseline. Vitals: Stable (BP 131/69, HR 80, RR 18, Temp 36.6?C, SpO2 98% RA). Objective Last Vital Signs Temp 35.8 C L 03/08/25 11:14 Pulse 91 H 03/08/25 11:14 Resp 18 03/08/25 11:14 BP 124/97 H 03/08/25 11:14 Pulse Ox 96 03/08/25 11:14 Laboratory Results - last 24 hr 03/08/25 03/08/25 06:50 08:58 WBC 11.52 H RBC 4.43 Hgb 11.9 Hct 38.5 MCV 87 MCH 26.9 L MCHC 30.9 L RDW 13.1 Plt Count 467 H MPV 9.0 Immature Gran % 0.4 Neutrophils % 73.0 Lymphocytes % 12.4 Monocytes % 10.2 Eosinophils % 3.5 Basophils % 0.5 Nucleated RBC % 0.0 Absolute Neutrophils 8.41 H Absolute Lymphocytes 1.43 Absolute Monocytes 1.18 H Absolute Eosinophils 0.40 Absolute Basophils 0.06 Sodium 141 Potassium 3.9 Chloride 108 H Carbon Dioxide 25.0 Anion Gap 8 BUN 17 Creatinine 0.92 Est GFR (CKD-EPI 2020) 57.95 Glucose 90 Calcium 8.6 Magnesium 2.1 C-Reactive Protein 5.79 H Random Vancomycin 11.6 VTE Prohylaxis Risk Level: Moderate/High Risk Contraindications: None Prophylaxis: Pharmacologic Time Spent with Patient Time Spent with Patient: 25-34 minutes Time was spent: preparing to see the patient(eg.review tests), ordering medications,tests, procedures, referring, communicating with other health care services manager, indepentently interpreting results, counseling the patient and care coordination
--- NOTE | 2025-03-09 02:15 | NUR.NOTE ---
Pt is on comfort cares, vitals BP 141/67. HR 91, 02 95%, temp 36.2, RR 16, Q2 repo, not in distress. CARE rounds maintained.
--- NOTE | 2025-03-09 10:06 | W.PM.PROGNOT ---
Assessment and Plan Assessment and plan (1) Dry gangrene: Status: Acute Assessment and plan: Podiatry today found dry gangrene (3rd?5th toes), unstageable heel ulcer, erythema, and purulence concerning for superimposed infection. Wound cultures obtained. Vascular evaluation previously concluded not a candidate for revascularization; proximal amputation would be next step if deterioration occurs. MRI attempted but not tolerated. Family declines transfer to tertiary center or surgical intervention at this time. Dressings per podiatry recommendations Seen by Podiatry and Palliative care: Podiatry evaluation showed dry gangrene of the left fifth toe, unstageable left heel ulcer with possible abscess, and cellulitis. Pulses were non-palpable; vascular studies confirmed severe PAD with critical limb ischemia. Patient is not a candidate for revascularization, debridement, or amputation per vascular surgery due to comorbidities and inability to tolerate anesthesia. Infectious Disease advised only 5?7 days of IV antibiotics if treating infection, with no long-term antibiotics. High risk for limb loss and sepsis. Wound care initiated with Betadine and foam dressings; nursing to perform daily changes. Prevalon boots recommended. Dr. Navarro updated that patient is now off antibiotics with planned discharge to [facility] on 03/09 for comfort-focused care. Palliative care spoke via telephone with son/guardian Tobi, the only HIPAA contact. Family had questioned whether sedation for MRI might help evaluate blood flow, but it was reviewed that MRI would not electronic data interchange specialist given non-operable LLE gangrene, advanced Alzheimer?s dementia, and no surgical or curative options. Emphasis placed on comfort-focused care; antibiotics and life-prolonging treatments discontinued per existing COLST. Tobi expressed that the patient would not want invasive measures and confirmed goals of comfort measures only, prioritizing pain control. He voiced preference for return to [facility] for end-of-life care with internal hospice-style support. Palliative care reviewed hospice eligibility (dual diagnoses: end-stage Alzheimer disease and non-reconstructable gangrene), addressed family concerns, and reassured Tobi he is advocating appropriately. Plan for discharge back to [facility] on 03/09 for COUNT ROOM CLERK/EOL care. (2) Critical limb ischemia of left lower extremity: Status: Acute Assessment and plan: Toe pressure 39 mmHg from vascular note. No revascularization options; patient is non-ambulatory. Very high risk for progressive gangrene. Conservative management; pain control; goals of care ongoing Palliative care consult. (3) T2DM (type 2 diabetes mellitus): Assessment and plan: Continue Basaglar 30 units qAM. Sliding scale insulin. FS Glucose ACHS Daily BMP (4) Essential hypertension: Assessment and plan: Continue lisinopril 5 mg daily. (5) Alzheimer disease: Assessment and plan: Baseline dementia. Avoid sedating medications unless necessary. Reorientation, sleep hygiene, delirium precautions. (6) DVT prophylaxis: Status: Deleted Assessment and plan: Enoxaparin 40 mg daily discontinued (7) Discharge planning issues: Status: Deleted Assessment and plan: Return to [facility] 03/09/25 COUNT ROOM CLERK Objective Last Vital Signs Temp 35.8 C L 03/08/25 11:14 Pulse 91 H 03/08/25 11:14 Resp 18 03/08/25 11:14 BP 124/97 H 03/08/25 11:14 Pulse Ox 96 03/08/25 11:14 VTE Prohylaxis Risk Level: Moderate/High Risk Contraindications: None Prophylaxis: Pharmacologic
--- NOTE | 2025-03-09 10:18 | PDOC.CMDIS ---
Date of service: 03/09/25 Time of Service: 10:18 LACE Index Scoring Tool Questions: Length of Stay (in days): 2 Was the patient admitted via the E.D.?: Yes Comorbidities: Cerebrovascular Disease, PVD and Dementia E.D. Visits: 1 Answers: Total Score: 11 Risk of Readmission: High Risk Care Management Discharge Plan Reason for Hospitalization: gangrene of left foot Discharge Plan: Elisha will transfer back to her home at [facility] today. She will be receiving hospice service there. Family is aware and have agreed to this plan. Elisha will transport via EMS - [facility] as coordinated by CM. 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 Patient/Family Education Needs: review of discharge instructions, plan of care and discuss Ask me 3. SDOH Referrals and interventions: unable to answer question
--- NOTE | 2025-03-09 10:19 | DSE_ITS ---
Date of service: 03/09/25 Time of Service: 10:19 DS: Diagnosis Discharge Diagnosis (1) Dry gangrene: Status: Acute (2) Critical limb ischemia of left lower extremity: Status: Acute (3) T2DM (type 2 diabetes mellitus): (4) Essential hypertension: (5) Alzheimer disease: (6) DVT prophylaxis: Status: Deleted (7) Discharge planning issues: Status: Deleted Discharge Plan Disposition Patient Disposition: Alf Facility(SNF) Anticipated Discharge Date/Time: 03/09/25 10:00 Condition: Deteriorating Discharge Details Reason For Visit: Gangrene of Left Foot, Cellulitis of Left Foot Admit Date/Time: 03/07/25 16:27 Admit Provider: Henry Fragoso Attending Provider: Henry Fragoso Primary Care Provider: [facility] Hospital Course Hospital Course: This is an 84-year-old female with advanced Alzheimer?s dementia and severe peripheral arterial disease, was admitted after podiatry identified left foot dry gangrene( 5th toe), an unstageable heel ulcer with possible abscess, and ce llulitis. Vascular studies confirmed critical limb ischemia with no feasible options for revascularization or surgical intervention. She was initially started on broad-spectrum antibiotics, but Infectious Disease later determined that antibiotics beyond 5?7 days would not be effective and would not alter the underlying incurable disease process. Podiatry confirmed she is not a candidate for debridement or amputation due to profound vascular compromise. Wound care was maintained with Betadine and protective dressings. Palliative Care was consulted to clarify goals. After discussion with her g karenrdian, it was reaffirmed that the patient?s longstanding wishes are for no invasive interventions, no transfers, and comfort-focused care only. Her dual diagnoses?end-stage Alzheimer disease and non-operable, progressive gangrene?make her hospice-eligible. Tobi expressed priority for pain control and comfort and confirmed that she would prefer to return to [facility], where she lives, for end-of-life care. [facility] staff confirmed they can provide internal hospice-style support. All life-prolonging treatments and antibiotics were discontinued per patient preference and COLST. Comfort measures were initiated, with morphine PRN ordered for pain, especially prior to repositioning. Her condition remained stable for transport. She tolerated feeding with assistance, remained bedbound, minimally verbal, and intermittently responsive. Discharge Condition * Stable for transfer to long-term care facility on Comfort Measures Only * Minimally interactive; advanced dementia * Bedbound, total care, incontinent * Left foot with dry gangrene of 5th toe, heel ulcer; no surgical options * Pain primarily with movement; responds to PRN morphine Discharge Medications Comfort-focused only. * Morphine oral solution 2.5?20 mg q1h PRN for pain or distress (please administer prior to turning/repositioning). * Continue facility comfort protocols (e.g., APAP PRN, bowel regimen as a ppropriate). * All disease-modifying or life-prolonging medications discontinued per FLORIST HELPER status. Wound Care * Apply Betadine to gangrenous toe and heel ulcer. * Cover with foam border dressing; nursing to change daily. * Prevalon boots at all times while in bed to prevent pressure injury. * No debridement. Diet * Pleasure feeds as tolerated. Requires full assistance. Activity * Bedbound. Reposition for comfort with pre-medication. Follow-Up / Care Coordination * [facility] to continue comfort-directed care through end of life. * They do not use external hospice; internal hospice-style support will follow. * Notify Tobi if patient enters actively dying phase. * Palliative Care available by phone for any acute needs prior to transfer ([phone]). Final Assessment Elisha is being discharged on 03/09 back to [facility] for comfort-focused end-of-life care per her long-standing wishes and in alignment with her son/guardian?s guidance. All treatment is directed toward comfort, dignity, and symptom management and should be managed by the outpatient provider for FLORIST HELPER/ hospice c are at the facility. Discussed with Dr. Fragoso Home Meds and New Rx's Prescriptions: New morphine 10 mg/5 mL Solution See Rx Instructions .ROUTE .COMPLEX PRN (Reason: pain) Qty: 100 0RF Rx Instructions: 2.5 to 20 mg orally every hour as needed Continued magnesium hydroxide [Milk of Magnesia] 400 mg/5 mL suspension 400 mg PO DAILY PRN bisacodyl [Dulcolax (bisacodyl)] 10 mg suppository 10 mg KS DAILY PRN nystatin 100,000 unit/gram powder 1 applic topical BID sennosides [Senokot] 8.6 mg tablet 8.6 mg PO DAILY melatonin 5 mg capsule 5 mg PO HS PRN ketoconazole 2 % cream 1 applic topical DAILY Qty: 120 6RF Rx Instructions: Apply to toenails once daily urea 40 % cream 1 applic topical DAILY Qty: 28.35 3RF Discontinued mecobalamin (vitamin B12) 500 mcg tablet,chewable 500 mcg PO DAILY loperamide [Imodium A-D] 2 mg tablet 2 mg PO Q4H PRN Rx Instructions: administer after each loose stool until symptoms controlled; do not exceed 8 mg per 24 hrs aspirin [Adult Aspirin Regimen] 81 mg tablet,delayed release (DR/EC) 81 mg PO DAILY acetaminophen 325 mg capsule 325 mg PO ONCE PRN lisinopril 5 mg tablet 5 mg PO DAILY insulin glargine [Basaglar KwikPen U-100 Insulin] 100 unit/mL (3 mL) insulin pen 35 unit subcut QAM cranberry fruit 450 mg tablet 450 mg PO DAILY Rx Instructions: administer with a meal Discharge Instructions Stand Alone Forms: Portal Information Referrals: [facility] [Other] Referral Note: Follow-up with outpatient provider at [facility] 24 - 48 hours Activity:: Bedbound Equipment/Supplies:: Blood Glucose Monitor Diet:: As Tolerated Discharge Orders Discharge Orders: Discharge Order (Routine); Ordered 03/09/25 Ordered By: Priti Levi DS: Summary Time Spent with Patient providing and/or coordinating discharge services: Greater than 30 minutes Status at Discharge Functional status at discharge: bed bound Overall status at discharge: patient is not back to baseline Mental Status: mental status grossly normal and other (Flat- tearful) Speech and Movement: slowed movement (minimally verbal ) Mood: other (Flat- tearful) Affect: blunted Quality:SDOH Referrals and interventions: unable to answer question Exam Narrative Exam Narrative: Constitutional: Alert, non-verbal no acute distress- Matthews Mckeon pain face scale 5-6/10, Neck: No JVD Neuro: Alert but disoriented ?3; cooperative; baseline. CV: Poor distal perfusion; extremities cool. Resp: Non-labored on room air, clear lungs GI: Abdomen non-distended, soft non-tender. Extremities: * Left foot: * Large unstageable heel ulcer with erythema. * Dry gangrene from the tip of the left third toe with surrounding erythema extending to towards the mid metatarsal of the 4th and 5th metatarsals * Cool to touch; cap refill ~3 seconds. * Pedal pulses difficult/unpalpable. * Right foot: No acute findings. Skin: No acute rash. Psych Mental Status: mental status grossly normal and other (Flat- tearful) Speech and Movement: slowed movement (minimally verbal ) Mood: other (Flat- tearful) Affect: blunted DS: Data Vitals/I&O Vitals and I&O: Vital Signs Temperature 35.8 C L 03/08/25 11:14 Temperature Source Temporal Artery Scan 03/08/25 11:14 Pulse 91 H 03/08/25 11:14 Respiratory Rate 18 03/08/25 11:14 Respiratory Effort Normal 03/07/25 20:24 Respiratory Depth Normal 03/07/25 20:24 Blood Pressure 124/97 H 03/08/25 11:14 Blood Pressure Mean 106 03/08/25 11:14 Blood Pressure Position Sitting 03/07/25 11:15 Pulse Oximetry 96 03/08/25 11:14 Oxygen Delivery Method Room Air 03/08/25 11:30 Oxygen Flow Rate 0 03/08/25 11:30 Pain Level 2 03/08/25 16:30 Intake & Output 03/08/25 03/08/25 03/09/25 11:59 23:59 11:59 Intake Total 450 / 2550 2100 / 2550 Balance 450 / 2550 2100 / 2550 Intake: IV 100 / 2100 2000 / 2100 Oral 350 / 450 100 / 450 Other: Urine Color Yellow Yellow Urine Appearance Clear Urine Odor Normal Comment pt brief dry dry at this time Data Completed and Pending Pending Labs at Discharge: 03/07/25 03/08/25 03/08/25 12:20 06:50 08:58 WBC 10.64 11.52 H RBC 4.50 4.43 Hgb 12.2 11.9 Hct 39.6 38.5 MCV 88 87 MCH 27.1 26.9 L MCHC 30.8 L 30.9 L RDW 13.2 13.1 Plt Count 449 H 467 H MPV 9.0 9.0 Immature Gran % 0.3 0.4 Neutrophils % 68.2 73.0 Lymphocytes % 16.1 12.4 Monocytes % 11.4 10.2 Eosinophils % 3.4 3.5 Basophils % 0.6 0.5 Nucleated RBC % 0.0 0.0 Absolute Neutrophils 7.27 H 8.41 H Absolute Lymphocytes 1.71 1.43 Absolute Monocytes 1.21 H 1.18 H Absolute Eosinophils 0.36 0.40 Absolute Basophils 0.06 0.06 ESR 74 H Sodium 140 141 Potassium 4.8 3.9 Chloride 105 108 H Carbon Dioxide 28.7 25.0 Anion Gap 6.3 8 BUN 20 17 Creatinine 0.97 0.92 Est GFR (CKD-EPI 2020) 54.51 57.95 Glucose 247 H 90 Calcium 9.1 8.6 Magnesium 2.1 C-Reactive Protein 6.22 H 5.79 H Random Vancomycin 11.6 PFSH All Active Problems (Updated 03/09/25 @ 00:03 by PELON CHOUDHURY) Comfort measures only status (Acute) Dry gangrene (Acute) Abscess of left heel (Acute) Unstageable pressure ulcer of left heel (Acute) Critical limb ischemia of left lower extremity (Acute) Cellulitis of left foot (Acute) Gangrene of left foot (Acute) Nail dystrophy (Acute) Onychomycosis (Acute) Atherosclerosis of artery of both lower extremities (Acute) Ischemic ulcer of left foot (Acute) Chronic ulcer of left foot (Acute) Difficulty walking (Acute) Hyperlipidemia (Acute) Glaucoma (Chronic) Cataract in diseases classified elsewhere (Acute) Calcific tendinitis of right shoulder (Acute) Full incontinence of feces (Acute) Cerebrovascular disease (Acute) Cellulitis of left toe (Acute) Abnormal posture (Acute) Ulcer of left foot (Acute) Medical History Abnormal weight loss Social History Smoking/Tobacco Use Status: Never Smoking risk assessment performed?: Yes Alcohol Intake: never Substance use type: does not use Time Spent with Patient Time Spent with Patient: >85 minutes Time was spent: preparing to see the patient(eg.review tests), obtaining and/or reviewing separately otained hiistory, ordering medications,tests, procedures, referring, communicating with other health child care attendant school, indepentently interpreting results, counseling the patient, care coordination and other
[2025-03-09] MEDS: MORPHine Oral Solution 10 MG/5 ML CUP PO (11:54)
--- NOTE | 2025-03-09 13:27 | NUR.NOTE ---
Called report to [facility] Nurse Shelly took report. Emile will transport pt at 1400.Nursing Note:
== END 2025-03-09 14:07 | disposition skilled nursing facility (03) | DRG 300 ==
LOC: ER 18:23 → MS 18:49
PROVIDERS: Nurse Practitioner Family; Admitting Provider Family Medicine; Emergency Provider Emergency Medicine; PCP Internal Medicine; Responsible Provider Nurse Practitioner Acute Care; Visit Provider Family Medicine
DX: I10 Essential (primary) hypertension; G30.9 Alzheimer's disease, unspecified; L89.620 Pressure ulcer of left heel, unstageable; L02.612 Cutaneous abscess of left foot; Z74.1 Need for assistance with personal care; E11.52 Type 2 diabetes mellitus with diabetic peripheral angiopathy with gangrene; I70.262 Atherosclerosis of native arteries of extremities with gangrene, left leg; L03.116 Cellulitis of left lower limb; L97.429 Non-pressure chronic ulcer of left heel and midfoot with unspecified severity; B35.1 Tinea unguium; R26.2 Difficulty in walking, not elsewhere classified; I67.9 Cerebrovascular disease, unspecified; R15.9 Full incontinence of feces; E78.5 Hyperlipidemia, unspecified; I70.201 Unspecified atherosclerosis of native arteries of extremities, right leg; F02.C0 Dementia in other diseases classified elsewhere, severe, without behavioral disturbance, psychotic disturbance, mood disturbance, and anxiety; Z51.5 Encounter for palliative care
CPT/HCPCS: 00123; 36415; 80048; 85652; 96365; 96367; 96375; 99215; 99222; 99285; J1650; 73630; 73650; 80202; 83735; 85025; 86140; 99231; 99239; J0692; J1815; J2250; J3373; J3490

== ENCOUNTER 2025-03-07 11:11 | Outpatient (REF) | payer MEDICARE, OTHER, SELFPAY | END 2025-03-07 11:12 | disposition home or self-care (01) | LOC: LBN 11:11 | PROVIDERS: PCP Internal Medicine; Visit Provider Podiatrist | DX: I96 Gangrene, not elsewhere classified (principal); L97.529 Non-pressure chronic ulcer of other part of left foot with unspecified severity | CPT/HCPCS: 87077; 87070; 87075; 87186; 87205 ==